=== PATIENT | male | born 1960 | race Caucasian/White ===

== ENCOUNTER 2017-04-02 10:20 | Emergency (ER) | payer MEDICAID ==
[~2017-04-02] VITALS: Ht 170.2 cm; Wt 77.0 kg
[~2017-04-02 10:20] MED LIST: BACTRIM
[2017-04-02] MEDS ORDERED: ACETAMINOPHEN 500MG TABLET PO ONE (12:30)
[2017-04-02 13:16] VITALS: BP 131/98
== END 2017-04-02 13:17 | disposition home or self-care (01) ==
LOC: ER 11:56
DX: F07.81 Postconcussional syndrome (principal); G44.209 Tension-type headache, unspecified, not intractable; I10 Essential (primary) hypertension; Z88.0 Allergy status to penicillin
CPT/HCPCS: 99283

== ENCOUNTER 2022-10-27 05:44 | Emergency (ER) | payer SELFPAY ==
[~2022-10-27] VITALS: Ht 170.2 cm; Wt 71.0 kg
[2022-10-27 06:44] VITALS: BP 159/106
== END 2022-10-27 10:23 | disposition left against medical advice (07) ==
LOC: ER 05:44
DX: Z53.21 Procedure and treatment not carried out due to patient leaving prior to being seen by health care provider (principal)

== ENCOUNTER 2023-12-29 10:48 | Emergency (ER) | payer SELFPAY ==
[~2023-12-29] VITALS: Ht 175.3 cm; Wt 81.0 kg
[2023-12-29 11:00] VITALS: BP 169/110; RESP 16; TEMP 98.3; O2SAT 97
[2023-12-29 11:03] VITALS: PULSE 100
== END 2023-12-29 13:08 | disposition home or self-care (01) ==
LOC: ER 10:48
DX: R25.2 Cramp and spasm (principal); I10 Essential (primary) hypertension; Z87.442 Personal history of urinary calculi; Z88.0 Allergy status to penicillin
CPT/HCPCS: 99281

== ENCOUNTER 2024-11-30 12:34 | Emergency (ER) | payer MEDICAID ==
[~2024-11-30] VITALS: Ht 167.6 cm; Wt 77.1 kg
[2024-11-30 12:41] VITALS: O2SAT 96
[2024-11-30 12:46] VITALS: BP 148/95; PULSE 84; RESP 16; TEMP 98.1; O2SAT 98
== END 2024-11-30 14:52 | disposition home or self-care (01) ==
LOC: ER 12:34
DX: H11.31 Conjunctival hemorrhage, right eye (principal); F10.90 Alcohol use, unspecified, uncomplicated; I10 Essential (primary) hypertension; Z88.0 Allergy status to penicillin; Y90.9 Presence of alcohol in blood, level not specified
CPT/HCPCS: 99281